=== PATIENT | male | born 1950 | race Caucasian/White ===

== ENCOUNTER 2020-06-24 23:27 | Emergency (ER) | payer MEDICARE, OTHER ==
[2020-06-24 23:48] VITALS: BP 145/75; PULSE 74
[2020-06-24] MEDS ORDERED: Lidocaine 1% with EPINEPHrine 1:100,000 20 ML MDV INJECT ONE (23:58)
--- NOTE | 2020-06-25 | EDM.PDOC ---
ED HPI GENERAL MEDICAL PROBLEM - General Chief Complaint: ENT Problem Stated Complaint: NOSE BLEED X7 HOURS Time Seen by Provider: 06/24/20 23:36 Source of Information: Reports: Patient History Limitations: Reports: No Limitations - History of Present Illness INITIAL COMMENTS - FREE TEXT/NARRATIVE: Mr. Kay is a very pleasant 70-year-old gentleman who now presents to the ED with painless right epistaxis that spontaneously developed around 17:00 this evening (around 7 hours ago). The patient states that he has been getting epistaxis about once every week or two during the winter. He gets them much less frequently when the weather is warm. He stuffed some Kleenex up his nose prior to coming to the ED. He has never been evaluated by an Clinical Lab Scientist. He is not on an anticoagulant. Here in the ED, the patient's initial BP is found to be mildly elevated at 145/75, otherwise, he is hemodynamically stable, afebrile, saturating 100% on room air. Other than his recurrent epistaxis, the patient denies having a recent fever, chills, sore throat, ear pain, nasal or sinus congestion, cough, dyspnea, chest pain, palpitations, nausea, vomiting, constipation, diarrhea, abdominal pain, urinary symptoms, recent weight gain or weight loss, recent bloody bowel movements or black bowel movements, recent joint aches, headaches, or rashes. The patient's PCP is Dr. Peewee Adames, at [facility]. He has already received an influenza vaccine this season. - Related Data Allergies Allergy/AdvReac Type Severity Reaction Status Date / Time Sulfa (Sulfonamide Allergy Rash Verified 04/27/16 18:04 Antibiotics) Home Meds: Home Meds Penicillin V Potassium [IJP: Penicillin V Potassium] 500 mg PO DAILY 04/27/16 [History] Past Medical History Cardiovascular History: Reports: High Cholesterol (untreated) Gastrointestinal History: Reports: Colon Polyp Musculoskeletal History: Reports: Fracture (ribs 1958, bilateral 5th fingers), Other (See Below) (Right distal biceps tendon rupture 2011. Dislocated left shoulder.) Oncologic (Cancer) History: Reports: Basal Cell Carcinoma - Past Surgical History HEENT Surgical History: Reports: Tonsillectomy GI Surgical History: Reports: Appendectomy Musculoskeletal Surgical History: Reports: Arthroscopic Knee (left x 2, right x 1), Other (See Below) (Right foot hammertoe and bunionectomy. 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 ED EXAM, ENT - Physical Exam Exam: See Below Exam Limited By: No Limitations General Appearance: Alert, WD/WN, No Apparent Distress Eye Exam: Bilateral Eye: EOMI, Normal Inspection Ears: Normal External Exam, Hearing Grossly Normal Nose: Other (Visible bleeding vessel anterior right nasal septum) Mouth/Throat: Normal Inspection, Normal Gums, Normal Lips, Normal Teeth, Other (Running down posterior oropharynx) Head: Atraumatic, Normocephalic Course - Vital Signs Last Recorded V/S: Last Vital Signs Temp 36.4 C 06/24/20 23:45 Pulse 74 06/24/20 23:45 Resp 16 06/24/20 23:45 BP 145/75 H 06/24/20 23:45 Pulse Ox 100 06/24/20 23:45 - Orders/Labs/Meds Meds: Medications Discontinued Medications Generic Name Dose Route Start Last Admin Trade Name Leslie PRN Reason Stop Dose Admin Cocaine HCl 1 ml 06/24/20 23:56 06/25/20 00:03 Cocaine Hcl TOP 06/24/20 23:57 4 ml ONETIME STA Administration Lidocaine/Epinephrine 20 ml 06/24/20 23:58 06/25/20 00:03 Xylocaine 1% With Epinephrine 1:100,000 INJECT 06/24/20 23:59 20 ml ONETIME ONE Administration Tranexamic Acid 1,000 mg 06/24/20 23:57 06/25/20 00:04 Cyklokapron IVPUSH 06/24/20 23:58 1,000 mg ONETIME ONE Administration - Re-Assessments/Exams Free Text/Narrative Re-Assessment/Exam: 06/24/20 23:59 As above, the patient has had right epistaxis for about 7 hours. 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 I have ordered topical cocaine, tranexamic acid, and lidocaine with epinephrine which I will mix together, soak some gauze with, and pack his nostril to see if we can get the bleeding to stop. 06/25/20 00:16 While I was waiting for the topical medicines to be pulled, I had the patient pinch his nostrils tightly. When I reexamined him, the right epistaxis has nearly stopped, although there is a very slight trickle from an anterior site on his right septum. I therefore soaked a 2 x 2 in an equal mixture of cocaine, transischemic acid, and lidocaine, then that up his right nostril. I will wait about 10 minutes, then reexamine him. 06/25/20 00:36 After 10 minutes of solution-soaked 2 x 2 packing, I removed the packing and reexamined the patient. The nostril was still bleeding from the right anterior septum site, however, the bleeding was relatively minimal, therefore I attempted cauterization. The above vessel still appeared to be bleeding, therefore I recommended that we place a Rapid Rhino. The patient agreed, but before I actually placed the balloon, the patient stated that he thought the bleeding stopped. I reexamined him, and it does in fact appear to have stopped. I will reexamine him again in about 10 minutes. 06/25/20 00:49 The patient's right epistaxis appears to have stopped. I had him apply a thin smear of bacitracin ointment to each side of his nasal septum, and, going forward, will have him apply a thin smear of petroleum jelly twice a day, to help keep the mucous membrane moist. I am also recommending that he purchase a humidifier to keep the humidity up in his home. I will give him a number for an Clinical Lab Scientist in [place] to follow-up with his epistaxis continues to recur. Departure - Departure Time of Disposition: 00:50 Disposition: Home, Self-Care 01 Condition: Good Clinical Impression: Right-sided epistaxis - Discharge Information *PRESCRIPTION DRUG MONITORING PROGRAM REVIEWED*: Not Applicable *COPY OF PRESCRIPTION DRUG MONITORING REPORT IN PATIENT LYNN: Not Applicable Referrals: Peewee Adames MD [Resident] - Merlin Garcia MD [Ordering Only Provider] - Forms: ED Department Discharge Additional Instructions: You were seen in the emergency room for 7 hours of a right-sided nosebleed. Your nosebleed was able to be stopped by packing it with a mixture of medicines, followed by chemical cautery. Going forward, we recommend that you apply a thin smear of petroleum jelly to each side of your nasal septum twice a day, to help keep the mucous membranes moist. We also recommend that you purchase a humidifier or vaporizer for your home, to help keep the humidity up. If you continue to have nosebleeds despite these measures, we recommend that you follow-up with the Clinical Lab Scientist Dr. Merlin Garcia, in [place]. If your nosebleeds again, we recommend that you sit upright, tilt your head forward, and pinch your nostrils tightly for 10 to 15 minutes. This almost always stops nosebleeds. If it does not, please return to the ER for reevaluation. Sepsis Event Note (ED) - Evaluation Sepsis Screening Result: No Definite Risk - Focused Exam Vital Signs: Vital Signs Temp Pulse Resp BP Pulse Ox 06/24/20 23:45 36.4 C 74 16 145/75 H 100
== END 2020-06-25 00:56 | disposition home or self-care (01) ==
LOC: JD.ED 23:27
DX: R04.0 Epistaxis (principal); Z88.2 Allergy status to sulfonamides
CPT/HCPCS: 30901; 96374; 99283-25